=== PATIENT | female | born 2000 | race African-American/Black ===

== ENCOUNTER 2018-02-27 23:30 | Emergency (ER) | payer SELFPAY, BC | END 2018-02-28 00:20 | disposition home or self-care (01) | LOC: ER 02-28 00:20 | DX: T16.2XXA Foreign body in left ear, initial encounter (principal); X58.XXXA Exposure to other specified factors, initial encounter; Y93.89 Activity, other specified; Y92.89 Other specified places as the place of occurrence of the external cause; Y99.8 Other external cause status | CPT/HCPCS: 99281 ==